=== PATIENT | female | born 1965 | race Two or more races ===

== ENCOUNTER → 2020-07-02 08:18 | Outpatient (BNVA) | payer OTHER, SELFPAY | PROVIDERS: PCP Pediatrics; Visit Provider Physician Assistant | DX: E66.3 Overweight (principal); Z98.84 Bariatric surgery status | CPT/HCPCS: Q3014 ==

== ENCOUNTER → 2020-08-06 08:22 | Outpatient (BNVA) | payer OTHER, SELFPAY | PROVIDERS: PCP Pediatrics; Visit Provider Physician Assistant | DX: E66.3 Overweight (principal); Z98.84 Bariatric surgery status | CPT/HCPCS: Q3014 ==

== ENCOUNTER → 2020-10-20 08:32 | Outpatient (BNVA) | payer OTHER, SELFPAY | PROVIDERS: PCP Pediatrics; Visit Provider Physician Assistant | DX: E66.3 Overweight (principal); R06.02 Shortness of breath; Z98.84 Bariatric surgery status | CPT/HCPCS: Q3014 ==

== ENCOUNTER → 2020-11-17 08:19 | Outpatient (BNVA) | payer OTHER, SELFPAY | PROVIDERS: PCP Pediatrics; Visit Provider Physician Assistant | DX: E66.3 Overweight (principal); Z98.84 Bariatric surgery status | CPT/HCPCS: Q3014 ==

== ENCOUNTER 2020-11-23 10:07 | Outpatient (REF) | payer OTHER, SELFPAY ==
[2020-11-23 11:08] LABS: MANUAL DIFF FLAG NO
[2020-11-23 11:41] LABS: Basophils Percent Auto 0.5 % (0-2); Eosinophils Absolute Auto 0.1 X10*3/uL (0.0-0.4); Eosinophils Percent Auto 2.4 % (0-4); Hematocrit 37.3 % (37-47); Hemoglobin 11.6 g/dl (12.0-16.0); Imm Gran Abs Auto 0.01 X10*3/uL (0.00-0.03); Imm Gran Pct Auto 0.2 % (0.0-0.4); Lymphocytes Absolute Auto 1.3 X10*3/uL (1.2-4.9); Lymphocytes Percent Auto 23.1 % (20-40); Mean Corpuscular HGB Conc 31.1 g/dl (31.0-35.0); Mean Corpuscular Hemoglobin 26.6 pg (27.0-33.0); Mean Corpuscular Volume 85.6 fL (80-98); Mean Platelet Volume 10.6 fL (9.4-12.3); Monocytes Absolute Auto 0.4 X10*3/uL (0.1-1.2); Monocytes Percent Auto 7.4 % (2-11); Neutrophils Absolute Auto 3.7 X10*3/uL (2.0-8.3); Neutrophils Percent Auto 66.4 % (45-73); Platelet Count 238 X10*3/uL (160-400); Red Blood Count 4.36 X10*6/uL (4.20-5.50); Red Cell Distribution Width 14.9 % (11.0-16.0); White Blood Count 5.5 X10*3/uL (4.8-10.8)
[2020-11-23 11:50] LABS: Alanine Aminotransferase 18 U/L (0-31); Albumin Level 4.1 g/dL (3.5-5.0); Alkaline Phosphatase 103 U/L (39-117); Anion Gap 14 (12-20); Aspartate Amino Transferase 20 U/L (5-31); Bilirubin Total 0.3 mg/dL (0.0-1.0); Blood Urea Nitrogen 23 mg/dL (9-16); C Reactive Protein 0.21 mg/dL (< or = 0.50); Calcium 9.4 mg/dL (8.4-10.2); Carbon Dioxide 23 mmol/L (22-29); Chloride 108 mmol/L (96-108); Cholesterol 172 mg/dL; Estimated Glomerular Filt Rate > 60; Glucose Random 83 mg/dL (60-115); HDL Cholesterol 64 mg/dL; LDL Cholesterol Calculated 90 mg/dl; Potassium 4.1 mmol/L (3.3-5.1); Sodium 141 mmol/L (135-145); Total Protein 7.3 g/dL (6.5-8.0); Triglycerides 90 mg/dL
[2020-11-23 11:53] LABS: Ferritin 34 ng/mL (10-250); TSH reflex Free T4 0.63 uIU/mL (0.32-4.0); Vitamin D 25-OH Total 45.5 ng/mL (>30)
[2020-11-23 12:32] LABS: Estimated Average Glucose 103 mg/dL; Hemoglobin A1c % 5.2 %
[2020-11-23 13:07] LABS: Folate > 20.0 ng/mL (> or = 4.0); Vitamin B12 391 pg/mL (200-900)
[2020-11-24 09:37] LABS: Insulin Level Total 9.6 uIU/mL
[2020-11-25 09:21] LABS: Calcium (PTHI) 9.2 mg/dL (8.6-10.4); PTHI 26 pg/mL (14-64)
[2020-11-25 23:31] LABS: Zinc 85 mcg/dL (60-130)
[2020-11-27 21:06] LABS: Vitamin A 55 mcg/dL (38-98)
[2020-11-29 06:11] LABS: Vitamin B1 21 nmol/L (8-30)
== END 2020-11-23 10:08 | disposition home or self-care (01) ==
LOC: HO.LAB 10:07
PROVIDERS: PCP Pediatrics; Visit Provider Physician Assistant
DX: Z98.84 Bariatric surgery status (principal)
CPT/HCPCS: 36415; 80053; 80061; 82306; 82607; 82728; 82746; 83036; 83525; 83970; 84425; 84443; 84590; 84630; 85025; 86140

== ENCOUNTER → 2020-12-31 08:23 | Outpatient (BNVA) | payer OTHER, SELFPAY | PROVIDERS: PCP Pediatrics; Visit Provider Physician Assistant | DX: E66.3 Overweight (principal); Z98.84 Bariatric surgery status; Z68.27 Body mass index [BMI] 27.0-27.9, adult | CPT/HCPCS: Q3014 ==

== ENCOUNTER → 2021-04-01 08:02 | Outpatient (BNVA) | payer OTHER, SELFPAY | PROVIDERS: PCP Pediatrics; Visit Provider Physician Assistant Surgical | DX: Z13.89 Encounter for screening for other disorder (principal) | CPT/HCPCS: Q3014 ==

== ENCOUNTER → 2021-06-01 08:06 | Outpatient (BNVA) | payer OTHER, SELFPAY | PROVIDERS: PCP Pediatrics; Visit Provider Physician Assistant Surgical | DX: E66.3 Overweight (principal); Z98.84 Bariatric surgery status | CPT/HCPCS: Q3014 ==

== ENCOUNTER 2021-11-23 11:07 | Outpatient (REF) | payer OTHER, SELFPAY ==
[2021-11-23 12:58] LABS: Anion Gap 10 (12-20); Blood Urea Nitrogen 22 mg/dL (9-16); Calcium 9.4 mg/dL (8.4-10.2); Carbon Dioxide 26 mmol/L (22-29); Chloride 108 mmol/L (96-108); Estimated Glomerular Filt Rate > 60; Glucose Random 80 mg/dL (60-115); Iron 62 mcg/dL (30-160); Percent Iron Saturation 18 % (15-50); Potassium 4.2 mmol/L (3.3-5.1); Sodium 140 mmol/L (135-145); Total Iron Binding Capacity 336 mcg/dL (228-428); Unsaturated Iron Binding 274 ug/dL
[2021-11-23 13:19] LABS: Vitamin D 25-OH Total 27.3 ng/mL (>30)
[2021-11-23 14:00] LABS: Vitamin B12 515 pg/mL (200-900)
[2021-11-28 06:21] LABS: Vitamin B1 13 nmol/L (8-30)
[2021-11-28 20:22] LABS: Zinc 79 mcg/dL (60-130)
[2021-11-29 14:32] LABS: Vitamin A 56 mcg/dL (38-98)
== END 2021-11-23 11:08 | disposition home or self-care (01) ==
LOC: HO.LAB 11:07
PROVIDERS: Absent Provider Physician Assistant; PCP Pediatrics; Visit Provider Physician Assistant Surgical
DX: E66.3 Overweight (principal); Z98.84 Bariatric surgery status
CPT/HCPCS: 36415; 80048; 82306; 82607; 82746; 83540; 84425; 84590; 84630; 99212

== ENCOUNTER → 2022-08-03 08:09 | Outpatient (BNVA) | payer OTHER, SELFPAY | PROVIDERS: PCP Internal Medicine; Visit Provider Physician Assistant Surgical | DX: E66.9 Obesity, unspecified (principal); Z98.84 Bariatric surgery status; Z68.30 Body mass index [BMI] 30.0-30.9, adult | CPT/HCPCS: 99212 ==

== ENCOUNTER 2022-08-18 08:32 | Outpatient (REF) | payer OTHER, SELFPAY ==
[2022-08-18 08:49] LABS: MANUAL DIFF FLAG NO
[2022-08-18 09:18] LABS: Basophils Percent Auto 0.5 % (0-2); Eosinophils Absolute Auto 0.1 X10*3/uL (0.0-0.4); Eosinophils Percent Auto 1.9 % (0-4); Hematocrit 31.6 % (37.0-47.0); Imm Gran Abs Auto 0.02 X10*3/uL (0.00-0.03); Imm Gran Pct Auto 0.3 % (0.0-0.4); Lymphocytes Absolute Auto 1.3 X10*3/uL (1.2-4.9); Lymphocytes Percent Auto 21.9 % (20-40); Mean Corpuscular HGB Conc 31.6 g/dl (31.0-35.0); Mean Corpuscular Volume 85.4 fL (80.0-98.0); Mean Platelet Volume 11.1 fL (9.4-12.3); Monocytes Absolute Auto 0.4 X10*3/uL (0.1-1.2); Monocytes Percent Auto 6.9 % (2-11); Neutrophils Absolute Auto 3.9 x10*3/uL (2.0-8.3); Neutrophils Percent Auto 68.5 % (45-73); Platelet Count 244 X10*3/uL (160-400); Red Cell Distribution Width 14.1 % (11.0-16.0); White Blood Count 5.8 X10*3/uL (4.8-10.8)
[2022-08-18 09:32] LABS: Estimated Average Glucose 103 mg/dL; Hemoglobin A1c % 5.2 %
[2022-08-18 09:55] LABS: Alanine Aminotransferase 9 U/L (0-31); Albumin Level 3.8 g/dL (3.5-5.0); Alkaline Phosphatase 89 U/L (39-117); Anion Gap 11 (12-20); Aspartate Amino Transferase 16 U/L (5-31); Bilirubin Total 0.4 mg/dL (0.0-1.0); Blood Urea Nitrogen 15 mg/dL (9-16); C Reactive Protein 0.21 mg/dL (< or = 0.50); Calcium 8.9 mg/dL (8.4-10.2); Carbon Dioxide 26 mmol/L (22-29); Chloride 109 mmol/L (96-108); Cholesterol 152 mg/dL; Estimated Glomerular Filt Rate > 60; Glucose Random 91 mg/dL (60-115); HDL Cholesterol 55 mg/dL; Iron 35 mcg/dL (30-160); LDL Cholesterol Calculated 82 mg/dl; Percent Iron Saturation 12 % (15-50); Potassium 4.3 mmol/L (3.3-5.1); Sodium 142 mmol/L (135-145); Total Iron Binding Capacity 300 mcg/dL (228-428); Total Protein 6.4 g/dL (6.5-8.0); Triglycerides 77 mg/dL; Unsaturated Iron Binding 265 ug/dL
[2022-08-18 10:32] LABS: Ferritin 22 ng/mL (10-250); Folate 15.5 ng/mL (> or = 4.0); Insulin 5 uU/mL (2-29); TSH reflex Free T4 1.12 uIU/mL (0.32-4.0); Vitamin B12 338 pg/mL (200-900)
[2022-08-18 10:40] LABS: Vitamin D 25-OH Total 31.1 ng/mL (>30)
[2022-08-21 15:53] LABS: Calcium (PTHI) 8.8 mg/dL (8.6-10.4); PTHI 47 pg/mL (16-77)
[2022-08-22 05:43] LABS: Zinc 94 mcg/dL (60-130)
[2022-08-23 16:38] LABS: Vitamin A 46 mcg/dL (38-98)
[2022-08-24 16:38] LABS: Vitamin B1 11 nmol/L (8-30)
== END 2022-08-18 08:33 | disposition home or self-care (01) ==
LOC: HO.LAB 08:32
PROVIDERS: Visit Provider Physician Assistant
DX: K92.1 Melena (principal); Z98.84 Bariatric surgery status
CPT/HCPCS: 36415; 80053; 80061; 82306; 82607; 82728; 82746; 83036; 83525; 83540; 83970; 84425; 84443; 84590; 84630; 85025; 86140

== ENCOUNTER 2022-08-25 07:48 | Day surgery (SDC) | payer OTHER, SELFPAY ==
--- NOTE | 2022-08-19 21:04 | MHC.SHP ---
Pre-Procedural Eval Section A Date of Service: 08/19/22 The patient is an INPATIENT: No The History & Physical has been completed within 30 days and I have reviewed it.: No Section B Chief Complaint: Bariatric surgery status Relevant Family History (Specify if Yes): No Relevant Social History: None Present Medications: None Medical History: No relevant PMH History of Previous Operations: Relevant previous surgery/procedure and date(s) (laparoscopic gastric bypass) Allergies: Allergies Allergy/AdvReac Type Severity Reaction Status Date / Time No Known Allergies Allergy Verified 08/03/22 08:31 [No Known Allergies*] Review of Systems Sugical H&P ROS: Negative: Constitution, Cardiovascular, Respiratory, Neurological, Psychiatric, Hem-Onc, Allergic/Immunologic, Gastrointestinal, Genitourinary, Musculoskeletal, Integumentary, Endocrine and Eyes/Ears/Nose/Throat Exam Surgical H&P Exam: Normal: HEENT, Normal: Heart, Normal: Lungs, Normal: Extremities, Normal: Abdomen, Normal: Skin and Normal: Neurological Plan Diagnosis/Plan: Unchanged (EGD to assess for cause of GI bleeding. Risks for perforation and bleeding were discussed with patient. She is in agreement with the plan) I have reviewed the history and physical and performed a pertinent physical examination on my patient. No changes have occurred unless specified. Time Spent With Patient Time: Total time managing care of this patient today ____ minutes.
[2022-08-22 08:08] VITALS: BMI 30.6
--- NOTE | 2022-08-24 11:37 | HO.ANESPROP2 ---
Documented by User: Sylwia Delgadillo NP 08/24/22 11:38 HPI - Anesthesia Eval Consult details Narrative: 56yo F for Upper Endoscopy PMFSH Active Problems Active Problems: All Active Problems (Updated 08/22/22 @ 08:09 by Alma Torres RN) Gastric bypass status for obesity (Acute) Asthma (Acute) Overweight (BMI 25.0-29.9) (Acute) Black stool (Acute) Past Medical History Medical History Asthma GERD (gastroesophageal reflux disease) Migraines, neuralgic Sleep apnea Surgical History Surgical History History of ankle surgery History of total abdominal hysterectomy History of total left knee replacement History of total right knee replacement Hx of cholecystectomy Previous section S/P laparoscopic sleeve gastrectomy Social History Social History Alcohol intake: never Patient Tobacco Use Status: Never used Tobacco Use of substances other than those prescribed or required for medical reasons: No Are you DNR?: No Advance Directives: No Advance Directives Information Provided: Yes Meds Allergies Allergy/AdvReac Type Severity Reaction Status Date / Time No Known Allergies Allergy Verified 08/25/22 08:10 [No Known Allergies*] Home Medications Medication Instructions Recorded Confirmed Last Taken Type albuterol sulfate 90 mcg/actuation 2 puff inhalation Q4H PRN Wheezing 07/02/20 08/25/22 Unknown History aerosol inhaler bisacodyl 5 mg tablet,delayed 5 mg PO DAILY PRN congestion 07/02/20 08/25/22 Unknown History release cholecalciferol (vitamin D3) 50 50 mcg PO DAILY 07/02/20 08/25/22 Unknown History mcg (2,000 unit) tablet docusate sodium 100 mg capsule 100 mg PO BID 07/02/20 08/25/22 Unknown History gabapentin 400 mg capsule 400 mg PO TID 07/02/20 08/25/22 08/25/22 07:00 History hunttgui-jcelcexg-tvsw 45 mg-folic 1 cap PO DAILY 07/02/20 08/25/22 08/24/22 History acid 800 mcg-vit K 120 mcg capsule (Bariatric Multivitamins) sumatriptan succinate 50 mg tablet 50 mg PO ONCE 07/02/20 08/25/22 Unknown History topiramate 25 mg tablet 75 mg PO DAILY 07/02/20 08/25/22 08/25/22 07:00 History tramadol 50 mg tablet 50 mg PO BID 04/01/21 08/25/22 Unknown History estradiol 10 mcg vaginal tablet 10 mcg vaginal 2XW 11/23/21 08/25/22 Unknown History pantoprazole 40 mg tablet,delayed 40 mg PO DAILY 11/23/21 08/25/22 Unknown History release Exam Exam Date and Time: August 24, 2022 1137 Height,Weight and Vital Signs: Height 5 ft 3 in Weight 78.471 kg Pertinent Lab Results Pertinent Lab Results: Laboratory Tests 08/18/22 08/18/22 08:47 08:47 WBC 5.8 Hgb 10.0 L Hct 31.6 L Plt Count 244 Sodium 142 Potassium 4.3 Chloride 109 H Carbon Dioxide 26 BUN 15 Creatinine 0.69 Assessment and Plan Assessment Anesthesia Assessment: Chart Reviewed Documented by User: Dora Saenz MD 08/25/22 10:03 PMFSH Past Medical History Medical History Asthma GERD (gastroesophageal reflux disease) Migraines, neuralgic Sleep apnea Surgical History Surgical History History of ankle surgery History of total abdominal hysterectomy History of total left knee replacement History of total right knee replacement Hx of cholecystectomy Previous section S/P laparoscopic sleeve gastrectomy History of Problems with Anesthesia: No Social History Social History Alcohol intake: never Patient Tobacco Use Status: Never used Tobacco Use of substances other than those prescribed or required for medical reasons: No Are you DNR?: No Advance Directives: No Advance Directives Information Provided: Yes Meds Allergies Allergy/AdvReac Type Severity Reaction Status Date / Time No Known Allergies Allergy Verified 08/25/22 08:10 [No Known Allergies*] Home Medications Medication Instructions Recorded Confirmed Last Taken Type albuterol sulfate 90 mcg/actuation 2 puff inhalation Q4H PRN Wheezing 07/02/20 08/25/22 Unknown History aerosol inhaler bisacodyl 5 mg tablet,delayed 5 mg PO DAILY PRN congestion 07/02/20 08/25/22 Unknown History release cholecalciferol (vitamin D3) 50 50 mcg PO DAILY 07/02/20 08/25/22 Unknown History mcg (2,000 unit) tablet docusate sodium 100 mg capsule 100 mg PO BID 07/02/20 08/25/22 Unknown History gabapentin 400 mg capsule 400 mg PO TID 07/02/20 08/25/22 08/25/22 07:00 History sqwpygby-ymmyiwsu-degh 45 mg-folic 1 cap PO DAILY 07/02/20 08/25/22 08/24/22 History acid 800 mcg-vit K 120 mcg capsule (Bariatric Multivitamins) sumatriptan succinate 50 mg tablet 50 mg PO ONCE 07/02/20 08/25/22 Unknown History topiramate 25 mg tablet 75 mg PO DAILY 07/02/20 08/25/22 08/25/22 07:00 History tramadol 50 mg tablet 50 mg PO BID 04/01/21 08/25/22 Unknown History estradiol 10 mcg vaginal tablet 10 mcg vaginal 2XW 11/23/21 08/25/22 Unknown History pantoprazole 40 mg tablet,delayed 40 mg PO DAILY 11/23/21 08/25/22 Unknown History release Exam Airway Mallampati Class: II TM Dist: >3cm Neck ROM: Full Loose/Missing/Broken Teeth: No Heart: RRR Lungs: CTA Assessment and Plan Assessment Anesthesia Assessment: Anesthesia Plan Discussed Final Anesthetic Review History of Problems with Anesthesia: No NPO: Yes ASA Class: II Final Preanesthetic Review: Meds/Allgs Chart Reviewed, Consent Obtained/Reviewed and Anes Risks/Benef Reviewed Patient Risk: Low Procedure Risk: Intermediate Anesthetic Plan Anesthetic Plan: MAC: Disposition: Standard PACU
[2022-08-24 14:29] LABS: IDNOW Serial# BCCEAD1C
[2022-08-24 14:30] LABS: COVID-19 Test Negative (Negative)
[2022-08-25 08:12] VITALS: BMI 28.8
[2022-08-25 08:19] VITALS: BP 91/51; PULSE 52; RESP 16; TEMP 36.6; O2SAT 99
[2022-08-25] MEDS: Lactated Ringers 1,000 ML 100 ML IVCONT (08:37)
[2022-08-25 10:28] VITALS: BP 92/43; PULSE 49; RESP 20; TEMP 36.3; O2SAT 99
--- NOTE | 2022-08-25 10:28 | P.BOP_ITS ---
Brief Operative Note Date of Service: 08/25/22 Pre-op diagnosis: Abdominal pain Post-op diagnosis: same (1) anastomotic ulcer, 2) small hiatal hernia) Procedure: PROCEDURE DATE: 08/25/2022 PREOPERATIVE DIAGNOSIS: Abdominal pain, s/p gastric bypass POSTOPERATIVE DIAGNOSIS: ?Same as above. 1) Anastomotic ulcer, 2) small hiatal hernia PROCEDURE: Wpthzryy-ywtbtk-hvudagfhjeq with biopsies Surgeon: ?Brodie Marcelo M.D.. Ph.D. Rate Engineer: ?None ? Anesthesia: IV sedation Estimated blood loss: ?Minimal FINDINGS AND PROCEDURE: ? OPERATIVE INDICATIONS: ?The patient is a 56 year old female known to me who un derwent a laparoscopic gastric bypass by me. The patient has been complaining of epigastric abdominal pain last few weeks. Shehas not been following an appropriate nutritional plan.? Based on this information I recommended an upper endoscopy to evaluate the patient's symptoms.? Risks and complications of the surgery were discussed with the patient in advance particularly the possibility of perforation or bleeding that may require surgical intervention. The patient understood the risks and was in agreement with the plan. ? PROCEDURE: After informed consent was obtained by the patient, the patient was ?transferred to the Operating Room and was placed in the supine position.? After successful induction of IV sedation, a mouth block was placed and the patient was placed in the left lateral decubitus position. An upper endoscopy was performed next, the oropharynx and esophagus appeared within the normal limits. There was a 1-2cm hiatal hernia.? The z-line was smooth. The small pouch was entered, appeared to be of normal size. There was no gastritis and the gastrojejunostomy was patent. A biopsy was obtained from the gastric pouch. No significant bleeding was noted from any of the biopsy sites. There was a small, but deep anastomotic ulcer at the intestinal part of the anastomosis. At that point the scope was advanced into the proximal small intestine (proximal Sumanth limb) which appeared to be normal as well. The Sumanth limb and the pouch were decompressed and the scope was withdrawn from the patient's mouth. The patient was awaken and was transferred in stable condition to the Recovery Room for further care. I was present and performed all steps of the procedure. There were no residents to assist with this case. Brodie Marcelo M.D., Ph.D. Surgeon: Bello Marcelo MD Anesthesia: MAC Was an Rate Engineer used for this Procedure?: No Estimated blood loss (mL): 0 IV fluids (mL): 400 Urine output (mL): 0 Pathology: other (1) Gastric pouch) Condition: stable Disposition: PACU
[2022-08-25 10:43] VITALS: BP 103/56; PULSE 53; RESP 16; TEMP 36.3; O2SAT 97
== END 2022-08-25 11:15 ==
LOC: HO.SSS 07:48
PROVIDERS: Physician Assistant Surgical; Visit Provider Surgery
PROC: 0DJ08ZZ Inspection of Upper Intestinal Tract, Via Natural or Artificial Opening Endoscopic (ICD-10-PCS; CPT 43235; principal; 2022-08-25 09:10)
DX: K28.9 Gastrojejunal ulcer, unspecified as acute or chronic, without hemorrhage or perforation (principal); K44.9 Diaphragmatic hernia without obstruction or gangrene; Z98.84 Bariatric surgery status; K21.9 Gastro-esophageal reflux disease without esophagitis; E66.9 Obesity, unspecified; Z68.30 Body mass index [BMI] 30.0-30.9, adult; G47.33 Obstructive sleep apnea (adult) (pediatric); G43.909 Migraine, unspecified, not intractable, without status migrainosus; Z79.899 Other long term (current) drug therapy; Z20.822 Contact with and (suspected) exposure to COVID-19; Z90.49 Acquired absence of other specified parts of digestive tract
CPT/HCPCS: 43239; 87635; 88305; 88342

== ENCOUNTER → 2022-09-01 09:03 | Outpatient (BNVA) | payer OTHER, SELFPAY | PROVIDERS: PCP Pediatrics; Visit Provider Physician Assistant Surgical | DX: K28.9 Gastrojejunal ulcer, unspecified as acute or chronic, without hemorrhage or perforation (principal); T85.898D Other specified complication of other internal prosthetic devices, implants and grafts, subsequent encounter; Z98.84 Bariatric surgery status | CPT/HCPCS: 99212 ==

== ENCOUNTER 2022-10-03 06:16 | Day surgery (SDC) | payer OTHER, SELFPAY ==
[2022-09-27 20:32] VITALS: BMI 29.8
--- NOTE | 2022-09-29 22:12 | MHC.SHP ---
Pre-Procedural Eval Section A Date of Service: 09/29/22 The patient is an INPATIENT: No The History & Physical has been completed within 30 days and I have reviewed it.: Yes Section B Chief Complaint: Anastomotic ulcer Relevant Family History (Specify if Yes): No Relevant Social History: None Present Medications: None Medical History: No relevant PMH History of Previous Operations: Relevant previous surgery/procedure and date(s) (Laparoscopic gastric bypass) Allergies: Allergies Allergy/AdvReac Type Severity Reaction Status Date / Time No Known Allergies Allergy Verified 09/01/22 09:09 [No Known Allergies*] Review of Systems Sugical H&P ROS: Negative: Constitution, Cardiovascular, Respiratory, Neurological, Psychiatric, Hem-Onc, Allergic/Immunologic, Gastrointestinal, Genitourinary, Musculoskeletal, Integumentary, Endocrine and Eyes/Ears/Nose/Throat Exam Surgical H&P Exam: Normal: HEENT, Normal: Heart, Normal: Lungs, Normal: Extremities, Normal: Abdomen, Normal: Skin and Normal: Neurological Plan Diagnosis/Plan: Unchanged (EGD to assess for ulcer status. Risks for perforation and bleeding were discussed with patient. She is in agreement with the plan) I have reviewed the history and physical and performed a pertinent physical examination on my patient. No changes have occurred unless specified. Time Spent With Patient Time: Total time managing care of this patient today ____ minutes.
--- NOTE | 2022-10-02 10:54 | HO.ANESPROP2 ---
Documented by User: Sylwia Delgadillo NP 10/02/22 10:55 HPI - Anesthesia Eval Consult details Narrative: 56yo F for Upper Endoscopy s/p EGD 08/2022 with MAC [facility] Active Problems Active Problems: All Active Problems (Updated 09/27/22 @ 20:32 by Amy Castañeda, LEXI) Gastric bypass status for obesity (Acute) Asthma (Acute) Overweight (BMI 25.0-29.9) (Acute) Black stool (Acute) Anastomotic ulcer S/P gastric bypass (Acute) Past Medical History Medical History (Updated 09/27/22 @ 20:32 by Amy Castañeda, LEXI) Anxiety Asthma GERD (gastroesophageal reflux disease) Migraines, neuralgic Sleep apnea Surgical History Surgical History (Updated 09/27/22 @ 19:17 by Amy Castañeda RN) History of ankle surgery History of esophagogastroduodenoscopy History of total abdominal hysterectomy History of total left knee replacement History of total right knee replacement Hx of cholecystectomy Previous section S/P laparoscopic sleeve gastrectomy History of Problems with Anesthesia: No Social History Social History Alcohol intake: never Patient Tobacco Use Status: Never used Tobacco Meds Allergies Allergy/AdvReac Type Severity Reaction Status Date / Time No Known Allergies Allergy Verified 09/01/22 09:09 [No Known Allergies*] Home Medications Medication Instructions Recorded Confirmed Last Taken Type albuterol sulfate 90 mcg/actuation 2 puff inhalation Q4H PRN Wheezing 07/02/20 09/27/22 Unknown History aerosol inhaler bisacodyl 5 mg tablet,delayed 5 mg PO DAILY PRN congestion 07/02/20 09/27/22 Unknown History release cholecalciferol (vitamin D3) 50 50 mcg PO DAILY 07/02/20 09/27/22 Unknown History mcg (2,000 unit) tablet docusate sodium 100 mg capsule 100 mg PO BID 07/02/20 09/27/22 Unknown History gabapentin 400 mg capsule 400 mg PO TID 07/02/20 09/27/22 10/03/22 History bxwjawot-yciklpro-qfmv 45 mg-folic 1 cap PO DAILY 07/02/20 09/27/22 08/24/22 History acid 800 mcg-vit K 120 mcg capsule (Bariatric Multivitamins) sumatriptan succinate 50 mg tablet 50 mg PO ONCE 07/02/20 09/27/22 Unknown History topiramate 25 mg tablet 75 mg PO DAILY 07/02/20 09/27/22 10/03/22 History tramadol 50 mg tablet 50 mg PO BID 04/01/21 09/27/22 Unknown History estradiol 10 mcg vaginal tablet 10 mcg vaginal 2XW 11/23/21 09/27/22 Unknown History fexofenadine 180 mg tablet 180 mg PO DAILY 10/03/22 10/03/22 10/03/22 History (Allergy Relief (fexofenadine)) Exam Exam Date and Time: October 02, 2022 1054 Height,Weight and Vital Signs: Height 5 ft 2 in Weight 73.936 kg Pertinent Lab Results Pertinent Lab Results: Laboratory Tests 08/18/22 08/18/22 08:47 08:47 WBC 5.8 Hgb 10.0 L Hct 31.6 L Plt Count 244 Sodium 142 Potassium 4.3 Chloride 109 H Carbon Dioxide 26 BUN 15 Creatinine 0.69 Assessment and Plan Assessment Anesthesia Assessment: Chart Reviewed Final Anesthetic Review History of Problems with Anesthesia: No Documented by User: Siva Balbuena MD 10/03/22 13:39 [facility] Past Medical History Medical History (Updated 09/27/22 @ 20:32 by Amy Castañeda RN) Anxiety Asthma GERD (gastroesophageal reflux disease) Migraines, neuralgic Sleep apnea Functional capacity: independent ambulation Family History Family history of problems with anesthesia: No Surgical History Surgical History (Updated 09/27/22 @ 19:17 by Amy Castañeda RN) History of ankle surgery History of esophagogastroduodenoscopy History of total abdominal hysterectomy History of total left knee replacement History of total right knee replacement Hx of cholecystectomy Previous section S/P laparoscopic sleeve gastrectomy Social History Social History Alcohol intake: never Patient Tobacco Use Status: Never used Tobacco Meds Allergies Allergy/AdvReac Type Severity Reaction Status Date / Time No Known Allergies Allergy Verified 09/01/22 09:09 [No Known Allergies*] Home Medications Medication Instructions Recorded Confirmed Last Taken Type albuterol sulfate 90 mcg/actuation 2 puff inhalation Q4H PRN Wheezing 07/02/20 09/27/22 Unknown History aerosol inhaler bisacodyl 5 mg tablet,delayed 5 mg PO DAILY PRN congestion 07/02/20 09/27/22 Unknown History release cholecalciferol (vitamin D3) 50 50 mcg PO DAILY 07/02/20 09/27/22 Unknown History mcg (2,000 unit) tablet docusate sodium 100 mg capsule 100 mg PO BID 07/02/20 09/27/22 Unknown History gabapentin 400 mg capsule 400 mg PO TID 07/02/20 09/27/22 10/03/22 History gvfmgnrz-fxkogeyp-omrz 45 mg-folic 1 cap PO DAILY 07/02/20 09/27/22 08/24/22 History acid 800 mcg-vit K 120 mcg capsule (Bariatric Multivitamins) sumatriptan succinate 50 mg tablet 50 mg PO ONCE 07/02/20 09/27/22 Unknown History topiramate 25 mg tablet 75 mg PO DAILY 07/02/20 09/27/22 10/03/22 History tramadol 50 mg tablet 50 mg PO BID 04/01/21 09/27/22 Unknown History estradiol 10 mcg vaginal tablet 10 mcg vaginal 2XW 11/23/21 09/27/22 Unknown History fexofenadine 180 mg tablet 180 mg PO DAILY 10/03/22 10/03/22 10/03/22 History (Allergy Relief (fexofenadine)) Exam Airway Mallampati Class: III Neck ROM: Full Loose/Missing/Broken Teeth: Yes (fillings , cap ) Assessment and Plan Assessment Anesthesia Assessment: Anesthesia Plan Discussed Final Anesthetic Review Family History of Problems with Anesthesia: No NPO: Yes ASA Class: II Final Preanesthetic Review: Meds/Allgs Chart Reviewed, Consent Obtained/Reviewed and Anes Risks/Benef Reviewed Patient Risk: Intermediate Procedure Risk: Intermediate Anesthetic Plan Anesthetic Plan: MAC: and Agree w/ Assess. and Plan Disposition: Standard PACU
[2022-10-02 13:38] LABS: COVID-19 Test Negative (Negative); IDNOW Serial# 08D9AD1C
[2022-10-03 06:51] VITALS: BP 112/43; PULSE 50; RESP 16; TEMP 36.1; O2SAT 98
[2022-10-03] MEDS: Lactated Ringers 1,000 ML 80 ML IVCONT (06:57)
--- NOTE | 2022-10-03 07:30 | P.BOP_ITS ---
Brief Operative Note Date of Service: 10/03/22 Pre-op diagnosis: Anastomotic ulcer, s/p gastric bypass Post-op diagnosis: same Procedure: PROCEDURE DATE: 10/03/2022 PREOPERATIVE DIAGNOSIS: Anastomotic, s/p gastric bypass POSTOPERATIVE DIAGNOSIS: ?Same as above. 1) No anastomotic ulcer, 2) small hiatal hernia PROCEDURE: [id number]-zkgiqe-bvkvjgugsju Surgeon: ?Brodie Marcelo M.D.. Ph.D. Waxing Machine Operator: ?None ? Anesthesia: IV sedation Estimated blood loss: ?Minimal FINDINGS AND PROCEDURE: ? OPERATIVE INDICATIONS: ?The patient is a 56 year old female known to me who underwent a laparoscopic gastric bypass by me. The patient has been complaining of epigastric abdominal pain last few weeks. She has not been following an appropriate nutritional plan.?An endoscopy was performed a month ago which revealed an anastomotic ulcer. The patient has been placed in a liquid high protein diet and appropriate therapy and presents today for follow-up endoscopy to assess the status of the ulcer. Risks and complications of the surgery were discussed with the patient in advance particularly the possibility of perforation or bleeding that may require surgical intervention. The patient understood the risks and was in agreement with the plan. ? PROCEDURE: After informed consent was obtained by the patient, the patient was ?transferred to the Operating Room and was placed in the supine position.? After successful induction of IV sedation, a mouth block was placed and the patient was placed in the left lateral decubitus position. An upper endoscopy was performed next, the oropharynx and esophagus appeared w ithin the normal limits. There was a 1-2cm hiatal hernia.? The z-line was smooth. The small pouch was entered, appeared to be of normal size. There was no gastritis and the gastrojejunostomy was patent. There was no evidence of an anastomotic ulcer at the intestinal part of the anastomosis. The previous ulcer appears completely healed. At that point the scope was advanced into the proximal small intestine (proximal Sumanth limb) which appeared to be normal as well. The Sumanth limb and the pouch were decompressed and the scope was withdrawn from the patient's mouth. The patient was awaken and was transferred in stable condition to the Recovery Room for further care. I was present and performed all steps of the procedure. There were no residents to assist with this case. Brodie Marcelo M.D., Ph.D. Surgeon: Bello Marcelo MD Anesthesia: MAC Was an Waxing Machine Operator used for this Procedure?: No Estimated blood loss (mL): 0 IV fluids (mL): 400 Urine output (mL): 0 (No [place]ridge to record output) Pathology: none sent Condition: stable Disposition: PACU
[2022-10-03 08:07] VITALS: BP 120/63; PULSE 68; RESP 14; TEMP 36.7; O2SAT 98
[2022-10-03 08:34] VITALS: BP 112/62; PULSE 56; RESP 16; TEMP 36.7; O2SAT 96
== END 2022-10-03 09:37 | disposition home or self-care (01) ==
PROVIDERS: Physician Assistant Surgical; Visit Provider Surgery
PROC: 0DJ08ZZ Inspection of Upper Intestinal Tract, Via Natural or Artificial Opening Endoscopic (ICD-10-PCS; CPT 43235; principal; 2022-10-03 07:30)
DX: R10.13 Epigastric pain (principal); Z87.11 Personal history of peptic ulcer disease; K44.9 Diaphragmatic hernia without obstruction or gangrene; Z98.84 Bariatric surgery status; K21.9 Gastro-esophageal reflux disease without esophagitis; G47.33 Obstructive sleep apnea (adult) (pediatric); J45.909 Unspecified asthma, uncomplicated; G43.809 Other migraine, not intractable, without status migrainosus; Z79.899 Other long term (current) drug therapy; Z90.49 Acquired absence of other specified parts of digestive tract; Z20.822 Contact with and (suspected) exposure to COVID-19
CPT/HCPCS: 43235; 87635; J2250

== ENCOUNTER → 2022-10-05 09:18 | Outpatient (BNVA) | payer OTHER, SELFPAY | PROVIDERS: PCP Internal Medicine; Visit Provider Physician Assistant Surgical | DX: E66.3 Overweight (principal); T85.898D Other specified complication of other internal prosthetic devices, implants and grafts, subsequent encounter; K28.9 Gastrojejunal ulcer, unspecified as acute or chronic, without hemorrhage or perforation; Z98.84 Bariatric surgery status | CPT/HCPCS: 99212 ==